=== PATIENT | male | born 1985 | race Asian ===

== ENCOUNTER 2016-12-29 22:31 | Emergency (ER) | payer OTHER ==
[~2016-12-29] VITALS: Ht 172.7 cm; Wt 104.3 kg
[2016-12-29 22:37] VITALS: BP_SYST 146
[2016-12-29] MEDS ORDERED: KETAMINE HCL 500 MG/10 ML VIAL IVP ONE (23:00)
[2016-12-29] MEDS ORDERED: MIDAZOLAM HCL 5 MG/5 ML VIAL IVP ONE (23:00)
[2016-12-29] MEDS ORDERED: NACL 0.9% 1,000 ML IV ONE (23:00)
[2016-12-30 00:14] VITALS: BP_SYST 123
== END 2016-12-30 00:14 | disposition home or self-care (01) ==
LOC: SED 22:31
DX: S03.00XA Dislocation of jaw, unspecified side, initial encounter (principal); X58.XXXA Exposure to other specified factors, initial encounter; Y93.89 Activity, other specified; Y92.89 Other specified places as the place of occurrence of the external cause; Y99.8 Other external cause status
CPT/HCPCS: 96360; 99284; J7030